=== PATIENT | female | born 1985 | race Caucasian/White ===

== ENCOUNTER 2017-04-20 09:46 | Emergency (ER) | payer BC ==
[~2017-04-20] VITALS: Ht 160 cm; Wt 90.7 kg
[2017-04-20 09:46] VITALS: TEMP 37.1; Ht 160 cm; Wt 90.7 kg
[~2017-04-20 09:46] MED LIST: BCPILLS PO; ONDA4TAB46 PO
[2017-04-20] MEDS ORDERED: ONDANSETRON INJ 2 MG/ML 2 ML VIAL IV STA (09:59)
[2017-04-20] MEDS ORDERED: SODIUM CHLORIDE 0.9% 1000ML 1,000 ML IV STA (09:59)
[2017-04-20 10:01] VITALS: O2SAT 98
--- NOTE | 2017-04-20 10:09 | EMERGENCY ROOM VISIT NOTE ---
History Report prepared by [place]: Delia Griffith Under the Supervision of: Dr. Dylan Avelar M.D. 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 The patient woke up this morning and was feeling nauseated, lightheaded, and dizzy. She developed burning, squeezing chest pain in the left side of her chest and into her left arm. She states that she has had some burning chest pain for the past day and a half. This morning she tried eating crackers, but that did not help. She then got cold and shaky. Her mother called the ambulance and the patient was brought to the ED for further evaluation. 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 Negative fevers, cough, shortness of breath, lower extremity swelling. Pt does not take OCP. Her LNMP was a couple of days ago. She denies any recent prolonged travel or history of blood clots. She has had these symptoms before multiple times. Pt notes that she has been under a lot of stress and is concerned she might have anxiety. 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 A total of ten systems were reviewed and were otherwise negative. Family History Heart disease Social History Smoking Status: Never Smoker Drug Use: none Marital Status: Housing Status: lives with family Occupation Status: employed Current/Historical Medications No Active Prescriptions or Reported Meds Allergies Coded Allergies: No Known Allergies (Verified , 04/20/17) Physical Exam Vital Signs Date Time Temp Pulse Resp B/P (MAP) Pulse Ox O2 Delivery O2 Flow Rate FiO2 04/20/17 11:56 87 18 124/86 98 Room Air 04/20/17 10:47 79 18 133/80 97 Room Air 04/20/17 10:01 98 Room Air 04/20/17 09:57 98 Room Air 04/20/17 09:50 84 04/20/17 09:46 37.1 84 16 156/94 98 Room Air Physical Exam GENERAL: Awake, alert, well-appearing, NAD HENT: Normocephalic, atraumatic. EYES: Normal conjunctiva. Sclera non-icteric. NECK: Supple. No nuchal rigidity. FROM. RESPIRATORY: CTAB, no rhonchi, wheezing, crackles CARDIAC: RRR, no MRG ABDOMEN: Soft, NTND, BS+ MSK: Mild left-sided reproducible chest wall pain. No LE edema, redness, or warmth. NEURO: GCS 15, CN 2-12 intact, moves all 4s on command SKIN: No rash or jaundice noted. Medical Decision & Procedures ER Provider Diagnostic Interpretation: Radiology results as stated below per my review and radiologist interpretation: CHEST ONE VIEW PORTABLE CLINICAL HISTORY: Atypical chest pain COMPARISON STUDY: 06/23/2014 FINDINGS: The cardiac and mediastinal contours are normal. There is no evidence of focal pulmonary consolidation. There is no evidence of failure. No pleural effusions are visualized.[ IMPRESSION: No active disease in the chest. Electronically signed by: Vinay Couch M.D. 04/20/2017 10:17 AM Dictated Date/Time: 04/20/2017 10:16 AM Laboratory Results 04/20/17 09:20 Red Blood Count 4.43, Mean Corpuscular Volume 89.2, Mean Corpuscular Hemoglobin 30.2, Mean Corpuscular Hemoglobin Concent 33.9, Mean Platelet Volume 9.9, Neutrophils (%) (Auto) 62.8, Lymphocytes (%) (Auto) 26.9, Monocytes (%) (Auto) 7.1, Eosinophils (%) (Auto) 2.7, Basophils (%) (Auto) 0.3, Neutrophils # (Auto) 3.74, Lymphocytes # (Auto) 1.60, Monocytes # (Auto) 0.42, Eosinophils # (Auto) 0.16, Basophils # (Auto) 0.02 04/20/17 09:20 Test 04/20/17 09:20 White Blood Count 5.95 K/uL (4.8-10.8) Red Blood Count 4.43 M/uL (4.2-5.4) Hemoglobin 13.4 g/dL (12.0-16.0) Hematocrit 39.5 % (37-47) Mean Corpuscular Volume 89.2 fL (80-100) Mean Corpuscular Hemoglobin 30.2 pg (25-34) Mean Corpuscular Hemoglobin Concent 33.9 g/dl (32-36) Platelet Count 233 K/uL (130-400) Mean Platelet Volume 9.9 fL (7.4-10.4) Neutrophils (%) (Auto) 62.8 % Lymphocytes (%) (Auto) 26.9 % Monocytes (%) (Auto) 7.1 % Eosinophils (%) (Auto) 2.7 % Basophils (%) (Auto) 0.3 % Neutrophils # (Auto) 3.74 K/uL (1.4-6.5) Lymphocytes # (Auto) 1.60 K/uL (1.2-3.4) Monocytes # (Auto) 0.42 K/uL (0.11-0.59) Eosinophils # (Auto) 0.16 K/uL (0-0.5) Basophils # (Auto) 0.02 K/uL (0-0.2) RDW Standard Deviation 39.6 fL (36.4-46.3) RDW Coefficient of Variation 12.2 % (11.5-14.5) Immature Granulocyte % (Auto) 0.2 % Immature Granulocyte # (Auto) 0.01 K/uL (0.00-0.02) Prothrombin Time 10.2 SECONDS (9.0-12.0) Prothromb Time International Ratio 1.0 (0.9-1.1) Activated Partial Thromboplast Time 28.2 SECONDS (21.0-31.0) Partial Thromboplastin Ratio 1.1 Anion Gap 11.0 mmol/L (3-11) Est Creatinine Clear Calc Drug Dose 92.0 ml/min Estimated GFR () 93.6 Estimated GFR (Non- 80.8 BUN/Creatinine Ratio 10.4 (10-20) Calcium Level 8.7 mg/dl (8.5-10.1) Total Bilirubin 0.3 mg/dl (0.2-1) Direct Bilirubin < 0.1 mg/dl (0-0.2) Aspartate Amino Transf (AST/SGOT) 11 U/L (15-37) Alanine Aminotransferase (ALT/SGPT) 25 U/L (12-78) Alkaline Phosphatase 54 U/L (45-117) Troponin I < 0.015 ng/ml (0-0.045) Total Protein 7.3 gm/dl (6.4-8.2) Albumin 3.8 gm/dl (3.4-5.0) Lipase 218 U/L (73-393) Laboratory results reviewed by me. Medications Administered Medications (Trade) Dose Ordered Sig/Durga Route Start Time Stop Time Status Last Admin Dose Admin Sodium Chloride 1,000 ml @ 999 mls/hr Q1H1M STAT IV 04/20/17 09:59 04/20/17 10:59 DC 04/20/17 09:59 999 MLS/HR Ondansetron HCl (Zofran Inj) 4 mg NOW STAT IV 04/20/17 09:59 04/20/17 10:01 DC 04/20/17 10:07 4 MG Metoclopramide HCl (Reglan Inj) 10 mg NOW STAT IV 04/20/17 11:33 04/20/17 11:34 DC 04/20/17 11:50 10 MG Ibuprofen (Motrin Tab) 600 mg NOW STAT PO 04/20/17 11:33 04/20/17 11:34 DC 04/20/17 11:50 600 MG Acetaminophen (Tylenol Tab) 1,000 mg NOW STAT PO 04/20/17 11:33 04/20/17 11:34 DC 04/20/17 11:49 1,000 MG ECG Indication: chest pain Rate (beats per minute): 80 Rhythm: normal sinus Findings: no acute ischemic change, no ectopy, other (normal intervals; normal axis, t-wave flattening in lead 3) ED Course 0941: The patient was evaluated in room B11B. A complete history and physical exam was performed. 0959: Zofran 4 mg IV, NSS 1000 ml @ 999 mls/hr IV 1133: Tylenol 1000 mg PO, Motrin 600 mg PO, Reglan 10 mg IV 1121: I reassessed the patient at this time. She is feeling better and resting comfortably. I discussed the results and treatment plan with the patient. I answered all pertaining questions that she had. She expressed understanding and verbalized agreement. The patient will be discharged home. 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 Differential diagnosis: Etiologies such as cardiac ischemia, aortic dissection, pulmonary embolism, pneumonia, pneumothorax, musculoskeletal, infections, pericarditis, myocarditis , esophageal rupture, gastrointestinal, as well as others were entertained. Patient was seen and evaluated at the bedside. Patient has no past medical problems. Patient's father did have an CT at 61. Nonsmoker. Mild obesity. Patient states she's had multiple episodes like this in the past. Patient denies any other issues. Denies any abnormal stresses with the exception of the day today items that she normally experiences. Patient did have an EKG was nonischemic. Troponin negative. Blood work normal. Patient has a heart score less than 4. Deemed okay for outpatient workup. Patient PERC negative less likely PE. Patient was given follow-up with cardiology. Patient was given strict follow-up, discharge, and return precautions was safely discharged home. Medication Reconcilliation Current Medication List: was personally reviewed by me Blood Pressure Screening Patient's blood pressure: Normal blood pressure Impression Primary Impression: Left sided chest pain Scribe Attestation The scribe's documentation has been prepared under my direction and personally reviewed by me in its entirety. I confirm that the note above accurately reflects all work, treatment, procedures, and medical decision making performed by me. Departure Information Dispostion Home / Self-Care Prescriptions No Active Prescriptions or Reported Meds Referrals Praveen Lopez M.D. (PCP) Jesus Jaimes M.D. Patient Instructions Chest Pain - [facility], [facility] Additional Instructions Please return to the emergency department if you have worsening or recurrent symptoms not amenable to at-home treatment. Please call for a follow-up appointment with her primary care physician. Please take your medications as prescribed. If you have other concerns and/or complaints please feel free to also call your primary care physician's office or return the ED for further evaluation, management, and treatment. You may take 600 mg Ibuprofen every 6 hours as needed for pain with food for no more than 2 consecutive days. You may take tylenol 1000mg every 6 hours as needed for pain. You may take motrin and tylenol separately or at the same time. You have been examined and treated today on an emergency basis only. This is not a substitute for, or an effort to provide, complete comprehensive medical care. It is impossible to recognize and treat all injuries or illnesses in a single emergency department visit. It is therefore important that you follow up closely with [facility] [address] [facility]. Call as soon as possible for an appointment. Thank you for your time and consideration. I look forward to speaking with you again soon. Please don't hesitate to call us if you have any questions.
[2017-04-20 10:18] LABS: BASO % 0.3 %; BASO ABS # 0.02 K/uL (0-0.2); COMPLETE YES; EOS % 2.7 %; HEMATOCRIT 39.5 % (37-47); IG% 0.2 %; LYMPH % 26.9 %; MEAN CELL VOLUME 89.2 fL (80-100); MEAN CORPUSCULAR HEMOGLOBIN 30.2 pg (25-34); MEAN CORPUSCULAR HGB CONC 33.9 g/dl (32-36); MEAN PLATELET VOLUME 9.9 fL (7.4-10.4); MONO % 7.1 %; NEUT % 62.8 %; PLATELET COUNT 233 K/uL (130-400); RED BLOOD COUNT 4.43 M/uL (4.2-5.4); WHITE BLOOD COUNT 5.95 K/uL (4.8-10.8)
--- NOTE | 2017-04-20 10:18 | DIAGNOSTIC IMAGING REPORT ---
CHEST ONE VIEW PORTABLE CLINICAL HISTORY: Atypical chest pain COMPARISON STUDY: 06/23/2014 FINDINGS: The cardiac and mediastinal contours are normal. There is no evidence of focal pulmonary consolidation. There is no evidence of failure. No pleural effusions are visualized.[ IMPRESSION: No active disease in the chest. Electronically signed by: Vinay Couch M.D. 04/20/2017 10:17 AM Dictated Date/Time: 04/20/2017 10:16 AM
[2017-04-20 10:25] LABS: PARTIAL THROMBOPLASTIN RATIO 1.1; PROTHROMBIN TIME (PATIENT) 10.2 SECONDS (9.0-12.0)
[2017-04-20 10:37] LABS: ALT/SGPT 25 U/L (12-78); AST/SGOT 11 U/L (15-37); BLOOD UREA NITROGEN 10 mg/dl (7-18); BUN/CREATININE RATIO 10.4 (10-20); CALCIUM 8.7 mg/dl (8.5-10.1); CARBON DIOXIDE 23 mmol/L (21-32); CHLORIDE 106 mmol/L (98-107); CREATININE 0.93 mg/dl (0.60-1.20); GLUCOSE 132 mg/dl (70-99); POTASSIUM 3.5 mmol/L (3.5-5.1); SODIUM 140 mmol/L (136-145)
[2017-04-20 10:42] LABS: ALKALINE PHOSPHATASE 54 U/L (45-117)
[2017-04-20] MEDS ORDERED: IBUPROFEN 600 MG TAB PO STA (11:33)
[2017-04-20] MEDS ORDERED: METOCLOPRAMIDE HCL INJ 5 MG/ML 2 ML VIAL IV STA (11:33)
[2017-04-20] MEDS ORDERED: ACETAMINOPHEN 500 MG TAB PO STA (11:33)
[2017-04-20 11:56] VITALS: BP 124/86; PULSE 87; O2SAT 98
== END 2017-04-20 12:33 | disposition home or self-care (01) ==
LOC: EDBD 09:46 → C.EDB 09:47
DX: R07.9 Chest pain, unspecified (principal); Z82.49 Family history of ischemic heart disease and other diseases of the circulatory system; E66.9 Obesity, unspecified; Z68.35 Body mass index [BMI] 35.0-35.9, adult